=== PATIENT | female | born 1985 | race Caucasian/White ===

== ENCOUNTER 2019-01-08 17:06 | Emergency (ER) | payer OTHER ==
[2019-01-08 17:21] VITALS: BP 154/93
--- NOTE | 2019-01-08 18:02 | EDM.PDOC ---
ED HPI GENERAL MEDICAL PROBLEM - General Chief Complaint: Upper Extremity Injury/Pain Stated Complaint: FINGER LAC Time Seen by Provider: 01/08/19 17:25 - History of Present Illness INITIAL COMMENTS - FREE TEXT/NARRATIVE: 33 y/o female presents to ER with cc left middle finger laceration. She reports while cutting some frozen hamburger hand slipped and the knife cut her finger. Patient is uncertain of her last tetanus shot. She states that she is right- handed. Bleeding is controlled this time. 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: Social & Family History - Family History Family Medical History: Noncontributory - Tobacco Use Smoking Status *Q: Never Smoker - Caffeine Use Caffeine Use: Reports: Coffee - Recreational Drug Use Recreational Drug Use: No Review of Systems - Review of Systems Review Of Systems: See Below Constitutional: Reports: No Symptoms Eyes: Reports: No Symptoms Ears: Reports: No Symptoms Nose: Reports: No Symptoms Mouth/Throat: Reports: No Symptoms Respiratory: Reports: No Symptoms Cardiovascular: Reports: No Symptoms GI/Abdominal: Reports: No Symptoms Genitourinary: Reports: No Symptoms Musculoskeletal: Reports: Other (left middle finger laceration) Skin: Reports: Other (left anterior finger laceration) Neurological: Reports: No Symptoms Psychiatric: Reports: No Symptoms ED EXAM, GENERAL - Physical Exam Exam: See Below Exam Limited By: No Limitations General Appearance: WD/WN, No Apparent Distress Peripheral Pulses: 4+: Radial (L), Radial (R) Extremities: Other (left lateral anterior middle finger laceration 1.5 cm, neurovascularly intact. ) Neurological: Alert, Oriented, CN II-XII Intact Psychiatric: Normal Affect, Normal Mood Skin Exam: Warm, Dry, Normal Color, No Rash, Other (left middle finger laceration) Lymphatic: No Adenopathy ED TRAUMA EXTREMITY PROCEDURES - Laceration/Wound Repair Left Middle Mid-Anterior Lateral Distal Digit - 3rd (Middle) Appearance: Superficial, Clean Distal NVT: Neuro & Vascular Intact Local Anesthesia - Lidocaine (Xylocaine): 1% Plain Local Anesthetic Volume: 1cc Skin Prep: Chlorhexidine (Hibiciens) Closed With: Sutures Suture Size: other (5.0) # of Sutures: 2 Suture Type: Prolene Sterile Dressing Applied: Nurse Tetanus Status Addressed: Yes Complications: No Course - Vital Signs Last Recorded V/S: Last Vital Signs Temp 98.4 F 01/08/19 17:15 Pulse 88 01/08/19 17:15 Resp 16 01/08/19 17:15 BP 154/93 H 01/08/19 17:15 Pulse Ox 98 01/08/19 17:15 - Re-Assessments/Exams Free Text/Narrative Re-Assessment/Exam: 01/08/19 18:03 33-year-old female presents to [facility] chief complaint left middle finger laceration after cutting it on a knife while slicing frozen hamburger. She received laceration repair condition improved. I will discharge home with wound care instructions. Instructed patient to follow up with her PCP in 7-10 days to have sutures removed. Instructed patient to return to the ER for any new or acute worsening symptoms. Departure - Departure Time of Disposition: 18:21 Disposition: Home, Self-Care 01 Clinical Impression: Laceration of finger Qualifiers: Encounter type: initial encounter Finger: middle finger Damage to nail status: without damage Foreign body presence: without foreign body Laterality: left Qualified Code(s): S61.213A - Laceration without foreign body of left middle finger without damage to nail, initial encounter - Discharge Information Instructions: Laceration Care, Adult, [id number] Referrals: PCP,None [Primary Care Provider] - Forms: ED Department Discharge Additional Instructions: You have been diagnosis with finger laceration. Follow up with your PCP in 7- 10days to have your sutures removed. Return to the ER for any new or acute worsening symptoms.
== END 2019-01-08 18:38 | disposition home or self-care (01) ==
LOC: JD.ED 17:06
DX: S61.213A Laceration without foreign body of left middle finger without damage to nail, initial encounter (principal); W26.0XXA Contact with knife, initial encounter; Y93.89 Activity, other specified
CPT/HCPCS: 12001; 99282

== ENCOUNTER 2019-01-16 10:31 | Emergency (ER) | payer OTHER ==
[2019-01-16 10:53] VITALS: BP 126/77
== END 2019-01-16 10:41 | disposition home or self-care (01) ==
LOC: JD.ED 10:31
DX: S61.213D Laceration without foreign body of left middle finger without damage to nail, subsequent encounter (principal); W26.0XXD Contact with knife, subsequent encounter; Y93.89 Activity, other specified